=== PATIENT | female | born 1985 | race Caucasian/White ===

== ENCOUNTER 2018-10-06 09:12 | Inpatient (IN) | payer BC ==
[~2018-10-06] VITALS: Ht 165.1 cm; Wt 87.2 kg
[2018-10-09 08:10] VITALS: BP 136/83
== END 2018-10-09 15:30 | disposition home or self-care (01) | DRG 807 ==
LOC: LDOP 09:12 → LDIP 10:32 → 2NW 10-07 03:38
PROVIDERS: ADMIT Obstetrics & Gynecology Maternal & Fetal Medicine; ATTEND Obstetrics & Gynecology Maternal & Fetal Medicine
PROC: 10D17Z9 Manual Extraction of Products of Conception, Retained, Via Natural or Artificial Opening (ICD-10-PCS; principal; 2018-10-06)
PROC: 0KQM0ZZ Repair Perineum Muscle, Open Approach (ICD-10-PCS; 2018-10-06)
PROC: 10E0XZZ Delivery of Products of Conception, External Approach (ICD-10-PCS; 2018-10-06)
PROC: 3E0R3BZ Introduction of Anesthetic Agent into Spinal Canal, Percutaneous Approach (ICD-10-PCS; 2018-10-06)
PROC: 00HU33Z Insertion of Infusion Device into Spinal Canal, Percutaneous Approach (ICD-10-PCS; 2018-10-06)
DX: O72.0 Third-stage hemorrhage (principal); Z37.0 Single live birth; O70.1 Second degree perineal laceration during delivery; Z3A.39 39 weeks gestation of pregnancy
CPT/HCPCS: 36415; S0020; 84112; 85025; 86850; 86900; G0378; J0690; J3010; J2590; J7050; J7120

== ENCOUNTER 2020-09-19 13:30 | Outpatient (CLI) | payer OTHER ==
[~2020-09-19] VITALS: Ht 165.1 cm; Wt 86.8 kg
[~2020-09-19 13:30] MED LIST: PREN1TAB10 PO
[2020-09-19 13:48] VITALS: BP 119/80
[2020-09-19] MEDS ORDERED: LACTATED RINGERS 1,000 ML IVBOLUS ONE (14:30)
[2020-09-19] MEDS ORDERED: D5%-LACTATED RINGERS 1,000 ML IV SCH (15:30)
[2020-09-19 16:23] LABS: MICROSCOPIC INDICATED
== END 2020-09-19 16:25 | disposition home or self-care (01) ==
LOC: LDOP 13:30
PROVIDERS: ATTEND Obstetrics & Gynecology Maternal & Fetal Medicine
DX: O21.2 Late vomiting of pregnancy (principal); O26.893 Other specified pregnancy related conditions, third trimester; R19.7 Diarrhea, unspecified; R10.9 Unspecified abdominal pain; Z3A.36 36 weeks gestation of pregnancy
CPT/HCPCS: 59025; 81001; 87086; 96360; 96361; J7120; J7121

== ENCOUNTER 2020-09-30 10:05 | Inpatient (IN) | payer OTHER ==
[~2020-09-30] VITALS: Ht 165.1 cm; Wt 87.7 kg
[2020-09-30] MEDS ORDERED: ONDANSETRON 2MG/ML, 2ML IVPush PRN (11:00)
[2020-09-30] MEDS ORDERED: FENTANYL PF 100 MCG/2ML IVPush PRN (11:00)
[2020-09-30] MEDS: D5%-LACTATED RINGERS 1,000 ML IV SCH ×2 (11:00→19:00)
[2020-09-30] MEDS: LACTATED RINGERS 1,000 ML IV SCH ×4 (11:00→21:00)
[2020-09-30] MEDS ORDERED: FENTANYL PF 100 MCG/2ML IV PRN (11:00)
[2020-09-30] MEDS ORDERED: TERBUTALINE 1 MG/ML, 1ML SQ PRN (11:00)
[2020-09-30] MEDS ORDERED: CALCIUM CARBONATE 500 MG TAB.CHEW PO PRN ×2 (11:00→17:30)
[2020-09-30] MEDS ORDERED: TERBUTALINE 1 MG/ML, 1ML IVPush PRN (11:00)
[2020-09-30] MEDS ORDERED: OXYTOCIN 30U/ 0.9% NaCL 500ML 500 ML IV ONE (11:00)
[2020-09-30 11:03] VITALS: BP 142/74
[2020-09-30 11:05] LABS: BASOPHILS % (AUTO) 0 % (0-1); EOSINOPHILS % (AUTO) 0 % (1-7); LYMPHOCYTES % (AUTO) 19 % (22-44); MEAN CORPUSCULAR HEMOGLOBIN 31.4 pg (27.0-34.8); MEAN CORPUSCULAR HGB CONC 34.6 g/dL (32.4-35.8); MEAN PLATELET VOLUME 7.2 fL (7.4-10.4); MONOCYTES % (AUTO) 5 % (2-9); NEUTROPHILS % (AUTO) 76 % (42-75); PLATELET COUNT 278 x10^3/uL (130-400); RED BLOOD COUNT 3.98 x10^6/uL (3.82-5.3); RED CELL DISTRIBUTION WIDTH 12.8 % (9.6-15.2)
[2020-09-30] MEDS ORDERED: NEWBORN KIT ONE (11:43)
[2020-09-30] MEDS ORDERED: LIDOCAINE 1%, 20ML ONE (11:44)
[2020-09-30] MEDS ORDERED: MISOPROSTOL 200 MCG TABLET ONE (11:44)
[2020-09-30] MEDS ORDERED: OXYTOCIN 30U/ 0.9% NaCL 500ML 500 ML IV PRN (12:00)
[2020-09-30] MEDS ORDERED: BUPIVACAINE 0.25% ONE ×2 (12:20→15:47)
[2020-09-30] MEDS ORDERED: FENTANYL/BUPIV./NS/PF 250 ML EPIDCONT ONE (12:21)
[2020-09-30] MEDS ORDERED: LACTATED RINGERS 1,000 ML IVBOLUS PRN (13:00)
[2020-09-30] MEDS ORDERED: EPHEDRINE 50 MG/ML, 1ML IVPush PRN (13:00)
[2020-09-30] MEDS ORDERED: FENTANYL/BUPIV./NS/PF 250 ML EPIDCONT SCH (13:00)
[2020-09-30] MEDS ORDERED: ONDANSETRON 2MG/ML, 2ML IV PRN (17:30)
[2020-09-30] MEDS ORDERED: SIMETHICONE 80 MG CHEW TAB PO PRN (17:30)
[2020-09-30] MEDS ORDERED: DOCUSATE 100 MG CAPSULE PO PRN (17:30)
[2020-09-30] MEDS ORDERED: OXYcodone/APAP 5/325MG TABLET PO PRN ×2 (17:30)
[2020-09-30] MEDS ORDERED: ACETAMINOPHEN 325 MG TABLET PO PRN (17:30)
[2020-09-30] MEDS ORDERED: MISOPROSTOL 200 MCG TABLET PR PRN (17:30)
[2020-09-30] MEDS: OXYTOCIN 30U/ 0.9% NaCL 500ML 500 ML IV SCH (18:07)
[2020-09-30 19:30] VITALS: BP 113/72
[2020-09-30] MEDS: IBUPROFEN 600 MG TABLET PO PRN (22:28)
[2020-10-01 01:03] VITALS: BP 126/71
[2020-10-01 01:44] LABS: BASOPHILS % (AUTO) 0 % (0-1); EOSINOPHILS % (AUTO) 0 % (1-7); LYMPHOCYTES % (AUTO) 17 % (22-44); MEAN CORPUSCULAR HEMOGLOBIN 32.2 pg (27.0-34.8); MEAN CORPUSCULAR HGB CONC 35.5 g/dL (32.4-35.8); MEAN PLATELET VOLUME 7.7 fL (7.4-10.4); MONOCYTES % (AUTO) 6 % (2-9); NEUTROPHILS % (AUTO) 77 % (42-75); PLATELET COUNT 255 x10^3/uL (130-400); RED BLOOD COUNT 3.69 x10^6/uL (3.82-5.3); RED CELL DISTRIBUTION WIDTH 12.6 % (9.6-15.2)
[2020-10-01] MEDS: OXYTOCIN 30U/ 0.9% NaCL 500ML 500 ML IV SCH (03:30)
[2020-10-01 04:23] VITALS: BP 120/79
[2020-10-01] MEDS: IBUPROFEN 600 MG TABLET PO PRN ×3 (04:26→17:47)
[2020-10-01 07:20] VITALS: BP 125/80
[2020-10-01] MEDS ORDERED: PRENATAL VIT/IRON/FA 1 EACH TABLET PO SCH (09:00)
[2020-10-01 12:05] VITALS: BP 113/77
[2020-10-01 16:15] VITALS: BP 109/68
[2020-10-01] MEDS ORDERED: IBUP-1222 PO (16:26)
== END 2020-10-01 19:30 | disposition home or self-care (01) | DRG 807 ==
LOC: LDOP 10:05 → LDIP 10:30 → 2NW 19:03
PROVIDERS: ADMIT Obstetrics & Gynecology Maternal & Fetal Medicine; ATTEND Obstetrics & Gynecology Maternal & Fetal Medicine
PROC: 0KQM0ZZ Repair Perineum Muscle, Open Approach (ICD-10-PCS; principal; 2020-09-30)
PROC: 10E0XZZ Delivery of Products of Conception, External Approach (ICD-10-PCS; 2020-09-30)
PROC: 3E0R3BZ Introduction of Anesthetic Agent into Spinal Canal, Percutaneous Approach (ICD-10-PCS; 2020-09-30)
PROC: 00HU33Z Insertion of Infusion Device into Spinal Canal, Percutaneous Approach (ICD-10-PCS; 2020-09-30)
DX: O99.52 Diseases of the respiratory system complicating childbirth (principal); Z37.0 Single live birth; J45.909 Unspecified asthma, uncomplicated; O70.1 Second degree perineal laceration during delivery; O69.3XX0 Labor and delivery complicated by short cord, not applicable or unspecified; Z3A.37 37 weeks gestation of pregnancy; Z90.710 Acquired absence of both cervix and uterus; Z20.822 Contact with and (suspected) exposure to COVID-19
CPT/HCPCS: 36415; 84112; 85025; 86592; 86850; 86900; 87635; G0378; J2590; J7120